=== PATIENT | male | born 1950 | race African-American/Black ===

== ENCOUNTER 2019-02-06 11:25 | Observation (INO) | payer OTHER, MEDICARE ==
[2019-02-06 12:19] LABS: ABSOLUTE LYMPHOCYTES (AUTO) 0.5 10^3/uL (0.5-4.7); ABSOLUTE MONOCYTES (AUTO) 0.1 10^3/uL (0.1-1.4); ABSOLUTE NEUT (AUTO) 2.8 10^3/uL (1.7-8.2); BASOPHILS % (AUTO) 0.4 % (0-2); EOSINOPHILS % (AUTO) 0.2 % (0-6); HEMATOCRIT 37.8 % (37.9-51.0); HEMOGLOBIN 12.6 g/dL (13.5-17.0); LYMPHOCYTES % (AUTO) 13.8 % (13-45); MEAN CORPUSCULAR HEMOGLOBIN 31.6 pg (27.0-33.4); MEAN CORPUSCULAR HGB CONC 33.4 g/dL (32.0-36.0); MEAN CORPUSCULAR VOLUME 95 fl (80-97); MONOCYTES % (AUTO) 4.2 % (3-13); PLATELET COUNT 144 10^3/uL (150-450); RED BLOOD COUNT 3.99 10^6/uL (4.35-5.55); RED CELL DISTRIBUTION WIDTH 12.4 % (11.5-14.0); SEGMENTED NEUTROPHILS % (AUTO) 81.4 % (42-78); TOTAL CELLS COUNTED % (AUTO) 100 %; WHITE BLOOD COUNT 3.4 10^3/uL (4.0-10.5)
--- NOTE | 2019-02-06 12:29 | EKG REPORT ---
SEVERITY:- ABNORMAL ECG - SINUS RHYTHM VENTRICULAR BIGEMINY BORDERLINE T ABNORMALITIES, INFERIOR LEADS : Confirmed by: Hu Edmonds MD 06-Feb-2019 12:28:13
--- NOTE | 2019-02-06 12:30 | ER Document Report ---
ED General - General Chief Complaint: Dizziness Stated Complaint: DIZZINESS Time Seen by Provider: 02/06/19 12:07 [facility] [[facility] - Follow up as needed Notes: Patient says he got up this morning and went to the bathroom and came back to the bed and when he turned over in bed he had severe dizziness. It persisted and he went to the [place] [facility] and they referred him here for work-up. Patient says he has never had this before. He persists now. Is worse when he moves or stands up. He was nauseated this morning but never vomited. Denies any chest pains. Denies any shortness of breath or difficulty breathing. Has not had any fever. History of hypertension. Patient says he has no history of any heart disease, but was told about 10 or 12 years ago they had an irregular heartbeat. He was never followed up or treated for that. Patient has prostate condition. History of chronic back pain. TRAVEL OUTSIDE OF THE [place] IN LAST 30 DAYS: No - Related Data Allergies/Adverse Reactions: No Known Allergies Allergy (Unverified 02/06/19 11:54) Past Medical History - Social History Smoking Status: Unknown if Ever Smoked Cigarette use (# per day): No Family History: Reviewed & Not Pertinent Patient has suicidal ideation: No Patient has homicidal ideation: No - Past Medical History Cardiac Medical History: Reports: Hx Hypercholesterolemia, Hx Hypertension Past Surgical History: Reports: Hx Orthopedic Surgery - Rotator cuff surgery Review of Systems - Review of Systems Notes: REVIEW OF SYSTEMS: CONSTITUTIONAL : Denies fever. EENT: Denies eye, ear, nose or mouth or throat pain or other symptoms. CARDIOVASCULAR: Denies chest pain. RESPIRATORY: Denies cough, chest congestion, or shortness of breath. GASTROINTESTINAL: Denies abdominal pain or vomiting, or diarrhea. Did have some severe nausea this morning but never vomited. GENITOURINARY: Denies difficulty or painful urinating, urinary frequency, blood in urine. MUSCULOSKELETAL: Denies back or neck pain. Denies joint pain or swelling. SKIN: Denies rash or skin lesions. NEUROLOGICAL: Denies LOC or altered mental status. Denies headache. Denies sensory loss or motor deficits. ALL OTHER SYSTEMS REVIEWED AND NEGATIVE. Physical Exam - Vital signs Vitals: Resp Pulse Ox 14 98 02/06/19 11:28 02/06/19 11:28 Interpretation: Normal Notes: PHYSICAL EXAMINATION: GENERAL: Well-appearing, in no acute distress. HEAD: Atraumatic, normocephalic. EYES: Pupils equal round and reactive to light, extraocular movements intact. ENT: oropharynx clear without exudates. Moist mucous membranes. NECK: Normal range of motion, supple. LUNGS: Breath sounds clear and equal bilaterally. HEART: Regular rate and rhythm without murmurs. Monitor at this time shows a sinus rhythm without any ectopy. ABDOMEN: Soft, nontender. No guarding or rebound. No masses. BACK: No tenderness throughout entire back. EXTREMITIES: Normal range of motion without pain. NEUROLOGICAL: Normal speech, normal gait. Normal sensory, motor, and reflex exams. Awake, alert, and oriented x3. PSYCH: Normal mood, normal affect. SKIN: Warm, dry, no rashes. Course - Re-evaluation Re-evalutation: 02/06/19 14:22 Nurse reports that patient stood up at the bedside to use the urinal and became lightheaded and dizzy and noted on the monitor that the patient was in bigeminy. - Vital Signs Vital signs: Temp Pulse Resp BP Pulse Ox 59 L 16 127/73 H 96 02/06/19 14:42 02/06/19 11:29 02/06/19 14:42 02/06/19 11:29 - Laboratory Result Diagrams: 02/06/19 11:45 02/06/19 11:45 Laboratory results interpreted by me: 02/06/19 02/06/19 11:45 11:45 WBC 3.4 L RBC 3.99 L Hgb 12.6 L Hct 37.8 L Plt Count 144 L Seg Neutrophils % 81.4 H Glucose 112 H Creatine Kinase 269 H - EKG Interpretation by Me Rate: Normal - Bigeminal rhythm. Critical Care Note - Critical Care Note Total time excluding time spent on procedures (mins): 30 Discharge - Discharge Clinical Impression: Dizziness, Near syncope, Ventricular bigeminy seen on child monitor Disposition: ADMITTED OBSERVATION Admitting Provider: Fannie (Hospitalist) Unit Admitted: Telemetry [facility]errals: [facility] [[facility] - Follow up as needed
[2019-02-06 12:38] LABS: ALANINE AMINOTRANSFERASE 25 U/L (21-72); ALBUMIN 3.9 g/dL (3.5-5.0); ALKALINE PHOSPHATASE 70 U/L (38-126); ANION GAP 5 (5-19); ASPARTATE AMINO TRANSFERASE 27 U/L (17-59); BILIRUBIN,DIRECT 0.3 mg/dL (0.0-0.4); BILIRUBIN,TOTAL 0.8 mg/dL (0.2-1.3); BLOOD UREA NITROGEN 15 mg/dL (7-20); CALCIUM 9.3 mg/dL (8.4-10.2); CARBON DIOXIDE 29 mmol/L (22-30); CHLORIDE 105 mmol/L (98-107); CREATINE KINASE 269 U/L (55-170); GLUCOSE 112 mg/dL (75-110); POTASSIUM 4.4 mmol/L (3.6-5.0); SODIUM 138.8 mmol/L (137-145); TOTAL PROTEIN 7.3 g/dL (6.3-8.2)
[2019-02-06 12:50] LABS: CREATINE KINASE MB 0.72 ng/mL (<4.55)
[2019-02-06 12:51] LABS: TROPONIN I < 0.012 ng/mL
[2019-02-06 12:59] LABS: APPEARANCE,URINE CLEAR; BILIRUBIN,URINE NEGATIVE (NEGATIVE); COLOR,URINE YELLOW; GLUCOSE, URINE NEGATIVE (NEGATIVE); KETONES,URINE NEGATIVE (NEGATIVE); LEUKOCYTE ESTERASE,URINE NEGATIVE (NEGATIVE); NITRITE,URINE NEGATIVE (NEGATIVE); PROTEIN,URINE NEGATIVE (NEGATIVE); URINE SPECIFIC GRAVITY 1.009; UROBILINOGEN,URINE NEGATIVE mg/dL (<2.0)
[2019-02-06] MEDS ORDERED: ACETAMINOPHEN 325 MG TABLET PO PRN (16:28)
[2019-02-06] MEDS ORDERED: IPRATROPIUM/ALBUTEROL 0.5-2.5 MG/3 ML AMPUL NEB PRN (16:28)
[2019-02-06] MEDS ORDERED: ONDANSETRON 4 MG TAB.RAPDIS PO PRN (16:28)
[2019-02-06] MEDS ORDERED: PROMETHAZINE HCL 25 MG SUPP.RECT PR PRN (16:28)
[2019-02-06] MEDS ORDERED: MAG HYDROX/AL HYDROX/SIMETH SUSP 30 ML UDCUP PO PRN (16:28)
[2019-02-06] MEDS ORDERED: MECLIZINE HCL 12.5 MG TABLET PO PRN (16:31)
--- NOTE | 2019-02-06 17:52 | RADIOLOGY REPORT (SQ) ---
EXAM DESCRIPTION: CT HEAD WITHOUT COMPLETED DATE/TIME: 02/06/2019 5:39 pm REASON FOR STUDY: vertigo COMPARISON: None. TECHNIQUE: Axial images acquired through the brain without intravenous contrast. Images reviewed wi th bone, brain and subdural windows. Additional sagittal and coronal reconstructions were generated. Images stored on PACS. All CT scanners at this facility use dose modulation, iterative reconstruction, and/or weight based d osing when appropriate to reduce radiation dose to as low as reasonably achievable (ALARA). [facility]: Dose Right [facility]: CareDose [facility]: Dose Right [facility]: Teradose 4D [facility]: Banno RADIATION DOSE: CT Rad equipment meets quality standard of care and radiation dose reduction techniq ues were employed. CTDIvol: 53.2 mGy. DLP: 991 mGy-cm. mGy. LIMITATIONS: None. FINDINGS: VENTRICLES: Normal size and contour. CEREBRUM: No masses. No hemorrhage. No midline shift. No evidence for acute infarction. Normal gra y/white matter differentiation. No areas of low density in the white matter. CEREBELLUM: No masses. No hemorrhage. No alteration of density. No evidence for acute infarction. EXTRAAXIAL SPACES: No fluid collections. No masses. ORBITS AND GLOBE: No intra- or extraconal masses. Normal contour of globe without masses. CALVARIUM: No fracture. PARANASAL SINUSES: No fluid or mucosal thickening. SOFT TISSUES: No mass or hematoma. OTHER: No other significant finding. IMPRESSION: NORMAL BRAIN CT WITHOUT CONTRAST. EVIDENCE OF ACUTE STROKE: NO. COMMENT: Quality ID # 436: Final reports with documentation of one or more dose reduction techniques (e.g., Automated exposure control, adjustment of the mA and/or kV according to patient size, use of iterative reconstruction technique) TECHNICAL DOCUMENTATION: JOB ID: [id number] [employer]- All Rights Reserved Reading location - IP/workstation name: [email or web address]
--- NOTE | 2019-02-06 19:20 | PDOC H&P ---
History of Present Illness Admission Date/PCP: 02/06/19 15:22 [facility] History of Present Illness: BRUNO GARCÍA is a 68 year old male HTN, chronic back pain and recurrent ear infection and recent URI presented to ED stating that this morning when he got up this morning and went to the bathroom and came back to the bed and when he turned over in bed he had severe dizziness. It persisted and he went to the [place] clinic and they referred him here for work-up. Patient says he has never had this before. He persists now. Is worse when he moves or stands up. He was nauseated this morning but never vomited. Denies any chest pains. Denies any shortness of breath or difficulty breathing. Has not had any fever. Patient says he has no history of any heart disease, but was told about 10 or 12 years ago they had an irregular heartbeat. He was never followed up or treated for that. In ED CBC, CMP tropes within normal limits. Head CT no acute changes. EKG showed ventricular bigeminy sinus rhythm. Hospitalist was consulted for admission. Past Medical History Cardiac Medical History: Reports: Hyperlipidema, Hypertension Past Surgical History Past Surgical History: Reports: Orthopedic Surgery - Rotator cuff surgery Social History Smoking Status: Unknown if Ever Smoked Family History Family History: Reviewed & Not Pertinent Parental Family History Reviewed: Yes Children Family History Reviewed: Yes Sibling(s) Family History Reviewed.: Yes Medication/Allergy Home Medications: Fluticasone Propionate [Flonase Nasal [place] 50 Mcg/[place] 16 gm] 2 spray NASL DAILY 02/06/19 Loratadine [Claritin 10 mg Tablet] 10 mg PO DAILY 02/06/19 Methocarbamol [Robaxin 500 mg Tablet] 500 mg PO Q6 02/06/19 Naproxen [Naprosyn 250 mg Tablet] 250 mg PO BID 02/06/19 Sertraline HCl [Zoloft] 50 mg PO DAILY 02/06/19 Sildenafil Citrate [Viagra] 100 mg PO PRN PRN 02/06/19 Simvastatin [Zocor 40 mg Tablet] 20 mg PO QHS 02/06/19 Tamsulosin HCl [Flomax 0.4 mg Cap.sr] 0.4 mg PO QPM 02/06/19 Allergies/Adverse Reactions: No Known Allergies Allergy (Unverified 02/06/19 11:54) Review of Systems Review of Systems: as per HPI Physical Exam Vital Signs: Temp Pulse Resp BP Pulse Ox 59 L 15 154/82 H 96 02/06/19 14:42 02/06/19 18:01 02/06/19 18:01 02/06/19 18:01 Intake & Output 02/05/19 02/06/19 02/07/19 06:59 06:59 06:59 Weight 77.9 kg General appearance: PRESENT: no acute distress, well-developed, well-nourished Head exam: PRESENT: atraumatic, normocephalic Eye exam: PRESENT: conjunctiva pink, EOMI, PERRLA. ABSENT: scleral icterus Ear exam: PRESENT: normal external ear exam Mouth exam: PRESENT: moist, tongue midline Neck exam: ABSENT: carotid bruit, JVD, lymphadenopathy, thyromegaly Respiratory exam: PRESENT: clear to auscultation galindo. ABSENT: rales, rhonchi, wheezes Cardiovascular exam: PRESENT: RRR. ABSENT: diastolic murmur, rubs, systolic murmur Pulses: PRESENT: normal dorsalis pedis pul Vascular exam: PRESENT: normal capillary refill GI/Abdominal exam: PRESENT: normal bowel sounds, soft. ABSENT: distended, guarding, mass, organolmegaly, rebound, tenderness Rectal exam: PRESENT: deferred Extremities exam: PRESENT: full ROM. ABSENT: calf tenderness, clubbing, pedal edema Neurological exam: PRESENT: alert, awake, oriented to person, oriented to place, oriented to time, oriented to situation, CN II-XII grossly intact. ABSENT: motor sensory deficit Psychiatric exam: PRESENT: appropriate affect, normal mood. ABSENT: homicidal ideation, suicidal ideation Skin exam: PRESENT: dry, intact, warm. ABSENT: cyanosis, rash Results Laboratory Results: 02/06/19 11:45 02/06/19 11:45 02/06/19 02/06/19 02/06/19 11:45 11:45 11:45 WBC 3.4 L RBC 3.99 L Hgb 12.6 L Hct 37.8 L MCV 95 MCH 31.6 MCHC 33.4 RDW 12.4 Plt Count 144 L Seg Neutrophils % 81.4 H Lymphocytes % 13.8 Monocytes % 4.2 Eosinophils % 0.2 Basophils % 0.4 Absolute Neutrophils 2.8 Absolute Lymphocytes 0.5 Absolute Monocytes 0.1 Absolute Eosinophils 0.0 Absolute Basophils 0.0 Sodium 138.8 Potassium 4.4 Chloride 105 Carbon Dioxide 29 Anion Gap 5 BUN 15 Creatinine 0.88 Est GFR ( Amer) > 60 Est GFR (Non-Af Amer) > 60 Glucose 112 H Calcium 9.3 Magnesium 2.0 Total Bilirubin 0.8 AST 27 ALT 25 Alkaline Phosphatase 70 Total Protein 7.3 Albumin 3.9 Urine Color Urine Appearance Urine pH Ur Specific Boyd Urine Protein Urine Glucose (UA) Urine Ketones Urine Blood Urine Nitrite Ur Leukocyte Esterase Urine WBC (Auto) 02/06/19 12:29 WBC RBC Hgb Hct MCV MCH MCHC RDW Plt Count Seg Neutrophils % Lymphocytes % Monocytes % Eosinophils % Basophils % Absolute Neutrophils Absolute Lymphocytes Absolute Monocytes Absolute Eosinophils Absolute Basophils Sodium Potassium Chloride Carbon Dioxide Anion Gap BUN Creatinine Est GFR ( Amer) Est GFR (Non-Af Amer) Glucose Calcium Magnesium Total Bilirubin AST ALT Alkaline Phosphatase Total Protein Albumin Urine Color YELLOW Urine Appearance CLEAR Urine pH 7.0 Ur Specific Boyd 1.009 Urine Protein NEGATIVE Urine Glucose (UA) NEGATIVE Urine Ketones NEGATIVE Urine Blood NEGATIVE Urine Nitrite NEGATIVE Ur Leukocyte Esterase NEGATIVE Urine WBC (Auto) 0 02/06/19 02/06/19 11:45 11:45 Creatine Kinase 269 H CK-MB (CK-2) 0.72 Troponin I < 0.012 Impressions: Head CT 02/06/19 00:00 IMPRESSION: NORMAL BRAIN CT WITHOUT CONTRAST. EVIDENCE OF ACUTE STROKE: NO. Assessment and Plan - Diagnosis (1) Vertigo Is this a current diagnosis for this admission?: Yes Plan: Likely BPV vs Vertigular neuritis. Supportive Measures. Meclizine PRN. CT Head Negative. (2) HTN (hypertension) Is this a current diagnosis for this admission?: No Plan: Restart Home Meds (3) Ventricular bigeminy seen on nuclear monitoring technician Is this a current diagnosis for this admission?: No Plan: Unlikely the source of dizziness/vertigo. Admit to tele. Consult Cardiology.
[2019-02-06] MEDS: NORMAL SALINE 1000 ML 1,000 ML IV PRN (19:45)
[2019-02-06] MEDS: FAMOTIDINE 20 MG TABLET PO SCH (21:42)
[2019-02-06] MEDS: HEPARIN SOD (PORCINE) 5,000 UNIT/ML 1 ML SYRINGE SUBCUT SCH (22:04)
[2019-02-07 05:09] LABS: ABSOLUTE EOSINOPHILS # (AUTO) 0.1 10^3/uL (0.0-0.6); ABSOLUTE LYMPHOCYTES (AUTO) 1.3 10^3/uL (0.5-4.7); ABSOLUTE MONOCYTES (AUTO) 0.3 10^3/uL (0.1-1.4); ABSOLUTE NEUT (AUTO) 1.6 10^3/uL (1.7-8.2); BASOPHILS % (AUTO) 1.3 % (0-2); EOSINOPHILS % (AUTO) 4.1 % (0-6); HEMATOCRIT 36.2 % (37.9-51.0); LYMPHOCYTES % (AUTO) 37.7 % (13-45); MEAN CORPUSCULAR HEMOGLOBIN 31.7 pg (27.0-33.4); MEAN CORPUSCULAR HGB CONC 33.2 g/dL (32.0-36.0); MEAN CORPUSCULAR VOLUME 96 fl (80-97); MONOCYTES % (AUTO) 9.4 % (3-13); PLATELET COUNT 145 10^3/uL (150-450); RED BLOOD COUNT 3.79 10^6/uL (4.35-5.55); RED CELL DISTRIBUTION WIDTH 12.2 % (11.5-14.0); SEGMENTED NEUTROPHILS % (AUTO) 47.5 % (42-78); TOTAL CELLS COUNTED % (AUTO) 100 %; WHITE BLOOD COUNT 3.4 10^3/uL (4.0-10.5)
[2019-02-07 05:29] LABS: ANION GAP 9 (5-19); BLOOD UREA NITROGEN 13 mg/dL (7-20); CALCIUM 9.3 mg/dL (8.4-10.2); CARBON DIOXIDE 24 mmol/L (22-30); CHLORIDE 110 mmol/L (98-107); GLUCOSE 84 mg/dL (75-110); POTASSIUM 4.2 mmol/L (3.6-5.0); SODIUM 143.3 mmol/L (137-145)
[2019-02-07] MEDS: HEPARIN SOD (PORCINE) 5,000 UNIT/ML 1 ML SYRINGE SUBCUT SCH ×2 (06:26→13:21)
[2019-02-07] MEDS: FAMOTIDINE 20 MG TABLET PO SCH (09:24)
[2019-02-07] MEDS: NORMAL SALINE 1000 ML 1,000 ML IV PRN (09:24)
[2019-02-07] MEDS ORDERED: DOCUSATE SODIUM 100 MG/10 ML UDC PO SCH (10:00)
--- NOTE | 2019-02-07 12:41 | RADIOLOGY REPORT (SQ) ---
EXAM DESCRIPTION: CAROTID DOPPLER COMPLETED DATE/TIME: 02/07/2019 12:17 pm REASON FOR STUDY: presyncope,vertigo COMPARISON: None. TECHNIQUE: Grayscale ultrasound, Doppler velocity and spectra, and color Doppler images acquired of the extra-cranial carotid and vertebral arteries. Images stored on PACS. LIMITATIONS: None. FINDINGS: RIGHT CAROTID CCA Velocities: Within normal limits. ICA Velocities Peak systolic 1.07 m/s. End diastolic 0.38 m/s. Proximal ICA/CCA peak systolic ratio 0.9. Spectra normal. No significant plaque. LEFT CAROTID CCA Velocities: Within normal limits. ICA Velocities Peak systolic 1.51 m/s. End diastolic 0.56 m/s. Proximal ICA/CCA peak systolic ratio 1.1. Spectra normal. No significant plaque. VERTEBRAL ARTERIES: Antegrade flow. Normal waveforms. SUBCLAVIAN ARTERIES: No finding. OTHER: No other significant finding. IMPRESSION: NO HEMODYNAMICALLY SIGNIFICANT STENOSIS. COMMENT: Quality ID #195: Velocity criteria are extrapolated from the diameter data as defined by t he Society of Radiologists in Ultrasound Consensus Conference. Radiology 2003: 229; 340-346. TECHNICAL DOCUMENTATION: JOB ID: [id number]- All Rights Reserved Reading location - IP/workstation name: [email or web address]
[2019-02-07 14:58] VITALS: BP 144/66
--- NOTE | 2019-02-08 17:41 | PDOC DISCHARGE SUMMARY ---
General - Admit/Disc Date/PCP Admission Date/Primary Care Provider: 02/06/19 15:22 [facility] Discharge Date: 02/07/19 - Discharge Diagnosis (1) Vertigo Is this a current diagnosis for this admission?: Yes (2) Labyrinthitis Is this a current diagnosis for this admission?: Yes - Additional Information Prescriptions: Meclizine HCl [Antivert 12.5 mg Tablet] 12.5 mg PO TIDP PRN #15 tablet PRN Reason: vertigo Home Medications: Fluticasone Propionate [Flonase Nasal [place] 50 Mcg/[place] 16 gm] 2 spray NASL DAILY 02/06/19 Loratadine [Claritin 10 mg Tablet] 10 mg PO DAILY 02/06/19 Methocarbamol [Robaxin 500 mg Tablet] 500 mg PO Q6 02/06/19 Sertraline HCl [Zoloft] 50 mg PO DAILY 02/06/19 Sildenafil Citrate [Viagra] 100 mg PO PRN PRN 02/06/19 Simvastatin [Zocor 40 mg Tablet] 20 mg PO QHS 02/06/19 Tamsulosin HCl [Flomax 0.4 mg Cap.sr] 0.4 mg PO QPM 02/06/19 Meclizine HCl [Antivert 12.5 mg Tablet] 12.5 mg PO TIDP PRN #15 tablet 02/07/19 Naproxen [Naprosyn 250 mg Tablet] 250 mg PO BID PRN #0 02/07/19 History of Present Illness History of Present Illness: Admitting hospitalist's H&P: BRUNO GARCÍA is a 68 year old male HTN, chronic back pain and recurrent ear infection and recent URI presented to ED stating that this morning when he got up this morning and went to the bathroom and came back to the bed and when he turned over in bed he had severe dizziness. It persisted and he went to the [place] clinic and they referred him here for work-up. Patient says he has never had this before. He persists now. Is worse when he moves or stands up. He was nauseated this morning but never vomited. Denies any chest pains. Denies any shortness of breath or difficulty breathing. Has not had any fever. Hospital Course Hospital Course: Patient was admitted for vertigo. His orthostatic vital signs were unremarkable. Carotid doppler was also negative. CT head was negative. Neuro exam including cerebellar testing is unremarkable. He does endorse recent nasal congestion, sore throat and ear fullness. He did get relief with meclizine. His vertigo is related to positional changes. This is unlikely to be central in origin and likely has vestibular neuronitis vs labyrinthitis. He will be discharged on meclizine prn. Physical Exam Vital Signs: Temp Pulse Resp BP Pulse Ox 98.4 F 60 16 139/69 H 98 02/07/19 11:10 02/07/19 11:10 02/07/19 11:10 02/07/19 11:10 02/07/19 11:10 Intake & Output 02/06/19 02/07/19 02/08/19 06:59 06:59 06:59 Intake Total 1000 Balance 1000 Weight 171 lb 11.841 oz General appearance: PRESENT: no acute distress, well-developed, well-nourished Head exam: PRESENT: atraumatic, normocephalic Eye exam: PRESENT: conjunctiva pink, EOMI, PERRLA. ABSENT: scleral icterus Ear exam: PRESENT: normal external ear exam Mouth exam: PRESENT: moist, tongue midline Neck exam: ABSENT: carotid bruit, JVD, lymphadenopathy, thyromegaly Respiratory exam: PRESENT: clear to auscultation galindo. ABSENT: rales, rhonchi, wheezes Cardiovascular exam: PRESENT: RRR. ABSENT: diastolic murmur, rubs, systolic murmur Pulses: PRESENT: normal dorsalis pedis pul GI/Abdominal exam: PRESENT: normal bowel sounds, soft. ABSENT: distended, gua rding, mass, organolmegaly, rebound, tenderness Rectal exam: PRESENT: deferred Neurological exam: PRESENT: alert, awake, oriented to person, oriented to place, oriented to time, oriented to situation, CN II-XII grossly intact. ABSENT: motor sensory deficit Results Laboratory Results: 02/07/19 04:20 02/07/19 04:20 02/07/19 02/07/19 04:20 04:20 WBC 3.4 L RBC 3.79 L Hgb 12.0 L Hct 36.2 L MCV 96 MCH 31.7 MCHC 33.2 RDW 12.2 Plt Count 145 L Seg Neutrophils % 47.5 Lymphocytes % 37.7 Monocytes % 9.4 Eosinophils % 4.1 Basophils % 1.3 Absolute Neutrophils 1.6 L Absolute Lymphocytes 1.3 Absolute Monocytes 0.3 Absolute Eosinophils 0.1 Absolute Basophils 0.0 Sodium 143.3 Potassium 4.2 Chloride 110 H Carbon Dioxide 24 Anion Gap 9 BUN 13 Creatinine 0.91 Est GFR ( Amer) > 60 Est GFR (Non-Af Amer) > 60 Glucose 84 Calcium 9.3 Magnesium 1.9 02/06/19 02/06/19 11:45 11:45 Creatine Kinase 269 H CK-MB (CK-2) 0.72 Troponin I < 0.012 Impressions: Head CT 02/06/19 00:00 IMPRESSION: NORMAL BRAIN CT WITHOUT CONTRAST. EVIDENCE OF ACUTE STROKE: NO. Carotid Doppler Study 02/07/19 10:59 IMPRESSION: NO HEMODYNAMICALLY SIGNIFICANT STENOSIS. Qualifiers - * PATIENT BEING DISCHARGED WITH ANY OF THE FOLLOWING DIAGNOSIS: No
== END 2019-02-07 15:37 | disposition home or self-care (01) ==
LOC: ER 11:25 → EH 15:22 → 4W 19:58
PROVIDERS: ADMIT Internal Medicine; ATTEND Internal Medicine
DX: R42 Dizziness and giddiness (principal); H83.09 Labyrinthitis, unspecified ear; I10 Essential (primary) hypertension; G89.29 Other chronic pain; R09.81 Nasal congestion; M54.9 Dorsalgia, unspecified; J02.9 Acute pharyngitis, unspecified; E78.5 Hyperlipidemia, unspecified; R00.8 Other abnormalities of heart beat; N42.9 Disorder of prostate, unspecified; Z79.899 Other long term (current) drug therapy; Z86.79 Personal history of other diseases of the circulatory system
CPT/HCPCS: 93005; 99291; 36415 ×2; 82553; 82550; 83735 ×2; 85025 ×2; 80048; 80053; 81001; 84484; 93880; 70450; 93010; G0378 ×3; J7030 ×2